=== PATIENT | female | born 1995 | race American Indian/Alaskan Native ===

== ENCOUNTER 2019-12-13 07:49 | Emergency (ER) | payer SELFPAY ==
[2019-12-13 08:09] VITALS: BP 124/77
--- NOTE | 2019-12-13 09:48 | Emergency Department Report ---
ED Rash HPI - HPI Chief Complaint: Skin Rash Stated Complaint: RASH Time Seen by Provider: 12/13/19 09:44 Duration: 5 Days Location: Upper Extremities Suspected Cause: Unknown Rash Symptoms: Yes Itching, No Facial Swelling, No Tongue/Oral Swelling, No Breathing Difficulties, No Choking Sensation, No Wheezing/Dyspnea, No Peeling, No Blistering, No Fever, No Lightheaded, No Malaise, No Myalgias Severity: mild Other History: 24 yo with macular rash on upper extremity and chest. no systemic symptoms. started new job and thinks its chemical related ED Review of Systems ROS: Stated complaint: RASH Other details as noted in HPI Comment: All other systems reviewed and negative ED Past Medical Hx - Past Medical History Previous Medical History?: No - Surgical History Past Surgical History?: No - Family History Family history: no significant - Social History Smoking Status: Never Smoker Substance Use Type: None - Medications Home Medications: Home Medications Medication Instructions Recorded Confirmed Last Taken Type predniSONE [Deltasone] 20 mg PO DAILY #5 tablet 12/13/19 Unknown Rx Rash Exam - Exam General: Vital signs noted. No distress. Alert and acting appropriately. HEENT: No Periorbital Edema, No Conjuctival Injection, No Chemosis, No Perioral Edema, No Tongue Edema, No Uvular Edema, No Compromised Airway, No Drooling Lungs: Yes Good Air Exchange (Normal Breath Sounds), No Wheezes, No Ronchi, No Stridor, No Cough, No Labored Respirations, No Retractions, No Use of Accessory Muscles, No Other Abnormal Lung Sounds Heart: Yes Regular, No Murmur Skin: Yes Other (macular rash on arms and chest) Other: Positive: Abdomen Normal, Neurologic Normal, Musculoskeletal Normal ED Course Vital Signs 12/13/19 08:06 Temperature 98.8 F Pulse Rate 78 Respiratory 18 Rate Blood Pressure 124/77 O2 Sat by Pulse 100 Oximetry ED Medical Decision Making - Medical Decision Making macular rash on arms and chest itching relieved with benadryl no eye lesions started a new house keeping job no fever or systemic symptoms no one in home has the same decadon IM referred to derm pt and family educated. Vital Signs 12/13/19 08:06 Temperature 98.8 F Pulse Rate 78 Respiratory 18 Rate Blood Pressure 124/77 O2 Sat by Pulse 100 Oximetry - Differential Diagnosis simple rash Critical care attestation.: If time is entered above; I have spent that time in minutes in the direct care of this critically ill patient, excluding procedure time. ED Disposition Clinical Impression: Rash Disposition: DC-01 TO HOME OR SELFCARE Is pt being admited?: No Does the pt Need Aspirin: No Condition: Stable Instructions: Acute Rash (ED) Additional Instructions: continue benadryl for itching med as ordered cool bath Referrals: MANOJ FLORES MD [Staff Physician] - 3-5 Days PRADIP NGUYEN MD [Referring] - 3-5 Days Time of Disposition: 10:10
[2019-12-13] MEDS ORDERED: dexAMETHasone 4 MG/ML VIAL IM ONE (09:54)
== END 2019-12-13 10:26 | disposition home or self-care (01) ==
LOC: ED 07:49
DX: R21 Rash and other nonspecific skin eruption (principal); L29.9 Pruritus, unspecified
CPT/HCPCS: 96372; 99282; J1100